=== PATIENT | female | born 1980 | race Caucasian/White ===

== ENCOUNTER 2017-04-02 11:25 | Emergency (ER) | payer BC ==
[~2017-04-02] VITALS: Ht 157.5 cm; Wt 97.6 kg
[2017-04-02 12:55] LABS: EOSINOPHIL (%) 0.4 % (0-5); HEMATOCRIT 42.4 % (36.0-46.0); IMMATURE GRANULOCYTE (%) 0.9 % (0.0-0.7); IMMATURE GRANULOCYTE COUNT 0.1 K/uL; INSTRUMENT ABS NEUTROPHIL CT 5.7 K/uL; MCH 30.5 PG (29.0-34.0); MCV 92.4 FL (83-99); MEAN PLAT.VOLUME 9.9 uM^3 (9.5-12.4); MONOCYTE (%) 4.6 % (3-12); MONOCYTE COUNT 0.5 K/uL (0-0.8); NEUTROPHIL (%) 55.3 % (45-76); NEUTROPHIL COUNT 5.7 K/uL (1.8-6.4); PLATELET COUNT 293 K/uL (156-360); RBC DIS.WIDTH-CV 11.9 % (11.8-14.6); RBC DIS.WIDTH-SD 39.8 % (39-53); RED BLOOD COUNT 4.59 M/uL (3.80-5.20); WHITE BLOOD COUNT 10.4 K/uL (4.1-10.2)
[2017-04-02 12:58] LABS: CHLORIDE 105 mEq/L (99-109); POTASSIUM 3.4 mEq/L (3.7-5.4); SODIUM 142 mEq/L (136-147)
[2017-04-02 13:00] LABS: GLUCOSE 86 mg/dL (70-99)
[2017-04-02 13:01] LABS: ANION GAP 10 MEQ/L (2-14)
[2017-04-02 13:02] LABS: TOTAL BILIRUBIN 0.4 mg/dL (0.0-1.0)
[2017-04-02 13:04] LABS: ALKALINE PHOSPHATASE 57 IU/L (3-129); GFR ESTIMATE (CALCULATED) > 59 mL/min/
[2017-04-02 13:05] LABS: UREA NITROGEN (BUN) 16 mg/dL (9-23)
[2017-04-02 13:07] LABS: LIPASE 17 U/L (1.0-51.0)
[2017-04-02 13:13] LABS: QUANTITATIVE HCG < 4.0 MIU/ML
[2017-04-02 13:31] LABS: ADD MIUA? YES; BILIRUBIN NEGATIVE; BLOOD NEGATIVE; COLOR YELLOW ((YELLOW)); GLUCOSE (STRIP) NEGATIVE; KETONES NEGATIVE; LEUKOCYTES NEGATIVE; NITRITE NEGATIVE; PROTEIN (STRIP) NEGATIVE; SPECIFIC GRAVITY 1.027 (1.000-1.030); UROBILINOGEN 0.2 MG/DL (0.2-1.0)
[2017-04-02 13:45] LABS: EPITHELIAL CELLS 1+ /HPF; MUCUS 1+ /LPF
[2017-04-02 13:46] LABS: BACTERIA 1+ /HPF; CASTS NONE SEEN /LPF; CRYSTALS NONE SEEN; RED BLOOD CELLS NONE SEEN /HPF (0-5); UCUL ADDED? NO; WHITE BLOOD CELLS 0-5 /HPF (0-5)
[2017-04-02 15:13] VITALS: BP 122/90
== END 2017-04-02 15:18 | disposition home or self-care (01) ==
LOC: EME 11:25
PROVIDERS: Emergency Medicine
DX: R10.10 Upper abdominal pain, unspecified (principal); K21.9 Gastro-esophageal reflux disease without esophagitis; Z87.442 Personal history of urinary calculi; Z86.73 Personal history of transient ischemic attack (TIA), and cerebral infarction without residual deficits; Z88.0 Allergy status to penicillin
CPT/HCPCS: 74177; 80053; 81003; 83690; 84702; 85025; 99281; 99284; J7030